=== PATIENT | male | born 1975 | race American Indian/Alaskan Native ===

== ENCOUNTER 2024-07-22 07:30 | Day surgery (SDC) | payer MEDICAID, SELFPAY ==
[2024-07-21 12:42] VITALS: BMI 42.8
[2024-07-22] VITALS (11 sets, daily range): BP systolic 117–163; BP diastolic 83–106; PULSE 64–73; RESP 14–20; TEMP 36.4–37.1; O2SAT 93–98; BMI 43.8
[2024-07-22] MEDS: DiphenhydrAMINE INJ 50 MG/ML VIAL 25 MG IV (08:44)
[2024-07-22] MEDS: MIDAZOLAM INJ 1 MG/ML VIAL 2 ML (ASD USE ONLY) 2 MG IV (08:47)
[2024-07-22] MEDS: fentaNYL CIT INJ 50 mCg/ML AMP 2ML (ASD USE ONLY) IV (08:47)
[2024-07-22] MEDS: SIMETHICONE 40 MG/0.6 ML ORAL SYRINGE PO (08:47)
== END 2024-07-22 09:53 | disposition home or self-care (01) ==
PROVIDERS: PCP Family Medicine; Referring Provider Surgery; Visit Provider Surgery
PROC: 0DBE8ZX Excision of Large Intestine, Via Natural or Artificial Opening Endoscopic, Diagnostic (ICD-10-PCS; CPT 45380; principal; 2024-07-22 10:00)
DX: Z12.11 Encounter for screening for malignant neoplasm of colon (principal); Z80.0 Family history of malignant neoplasm of digestive organs; D12.2 Benign neoplasm of ascending colon
CPT/HCPCS: 45385; A4649; J1200; J2250; J3010; A9270

== ENCOUNTER 2024-08-04 08:52 | Outpatient (AMB) | payer MEDICAID, SELFPAY ==
[2024-08-04 09:01] VITALS: BP 133/77; PULSE 67; RESP 18; TEMP 36; O2SAT 94; BMI 44.3
--- NOTE | 2024-08-04 09:01 | GSCOFFNT_ITS ---
Vital Signs - [facility] 08/04/24 09:01 Height 1.75 m Height Method Stated Weight 136.106 kg Weight Measurement Method Standing Scale BMI 44.3 BP 133/77 H Blood Pressure Source Automatic Cuff Blood Pressure Location Right Upper Arm Position Sitting Respiration 18 Pulse 67 Pulse Source Monitor Temp 96.8 F Temp Source Temporal Artery Scan Pulse Oximetry (%) 94 L Oxygen Delivery Method Room Air Med/Allergies Allergies & Medications Allergies No Known Allergies Allergy (Verified 08/04/24 09:02) Medication Reconciliation No Known Home Medications 12/20/23 [History Confirmed 08/04/24] MA Intake Visit Data Collection New Patient or Established: Established Patient (seen at [facility] within 3 years) Seen by Clinical Staff ONLY (RN/MA): No Reason for Visit:: COLON F/U Pain Present Currently: No Historical Archeologist Required: No PCP or OBGYN visit in last 3 months: Yes Hx Now: No Do You Feel Safe at Home: Yes Authorities Contacted: N/A Smoking Status Smoking Status: Never smoker Immunization / Flu Flu Vaccine in the Last 12 Months: No Flu Vaccine Exclusion Criteria: No Exclusion Criteria Past Medical History Past Medical History NEUROLOGIC: Negative Neurological Disorders or Seizures CARDIAC: Negative Congestive Heart Failure RESPIRATORY: Negative Chronic Obstructive Pulmonary Disease (COPD) GASTROINTESTINAL: Positive Gastrointestinal Disorders (FOBT POSITIVE AND CONSTIPATION) GENITOURINARY: Negative Renal Disease MUSCULOSKELETAL: Positive Carpal Tunnel Syndrome (rt heel surgery) and Fractures ENDOCRINE: Negative Diabetes Mellitus Type 1 or Diabetes Mellitus Type 2 HEMATOLOGIC: Negative Anemia PSYCHO/SOCIAL: Negative Depression or Anxiety OTHER HISTORY: Negative Blood Transfusions, Anesthesia Reactions or Cancer Family History FAMILY HISTORY: Positive Family Cancer (brother with Colon CA) Social History SMOKING STATUS: Smoking status: Never smoker ALCOHOL: Alcohol Intake: Never Travel Risk Travel Hx Recent Travel: No HPI HPI Narrative 49M s/p colonoscopy due to family history and +FOBT here to discuss results. Pt reports feeling well overall with no complaints ROS Review of Systems Systems Reviewed: All systems reviewed, normal except as documented Objective/Exam General General Appearance: alert, cooperative and well groomed Resp Respiratory exam: Absent respiratory distress Results Colonoscopy report: ascending colon polyp Pathology: tubular adenoma up to 2cm Assessment & Plan Diagnosis / Problem List (1) Encounter to discuss colonoscopy results: Status: Acute Assessment & Plan: 49M s/p colonoscopy with findings of 2cm tubular adenoma, due for surveillance in 3 years. All questions were answered and pt expressed understanding Office Procedures GNS Level of Care Nursing/Assessment Patient Status: Established Patient Nursing Assessment/Reassesment: Medication Reconciliation, Update PMH in EMR and Vital Signs Coordination of Care: Complex Care and Chronic Disease 1-5, Education Complex Pt/Fam, Consent,records obtained, informed consent, Results/Orders obtained and Staff clarify orders Established Patient Charge Established Patient Point Assignment: 95 Established Patient Point Charge: EP Level 3 (80-115) Patient Portal Questionaires Social History Tobacco History Smoking Status: Never smoker Alcohol History Alcohol Intake: Never Domestic Abuse History Do You Feel Safe at Home: Yes Review of Systems Report any current symptoms Only answer those that you have currently: Past Medical History Past Medical History Have you ever been diagnosed with any of the following: Neurological Problems Seizures: No Cardiology Problems Congestive Heart Failure: No Respiratory Problems Chronic Obstructive Pulmonary Disease (COPD): No Genital/Urinary Problems Renal Disease: No Musculoskeletal Problems Carpal Tunnel Syndrome: Yes (rt heel surgery) Fractures: Yes Endocrine Problems Diabetes Mellitus Type 1: No Diabetes Mellitus Type 2: No Blood Problems Anemia: No Psychologic Problems Depression: No Anxiety: No Other Problems Blood Transfusions: No Anesthesia Reactions: No Cancer: No
== END 2024-08-04 09:10 | disposition home or self-care (01) ==
LOC: HODSRG 08:52
PROVIDERS: PCP Family Medicine; Referring Provider Family Medicine; Supervising Provider Surgery; Visit Provider Surgery
DX: Z71.2 Person consulting for explanation of examination or test findings (principal); D12.6 Benign neoplasm of colon, unspecified
CPT/HCPCS: 99213; G0463